=== PATIENT | male | born 1945 | race Asian ===

== ENCOUNTER 2022-01-03 19:15 | Emergency (ER) | payer MEDICARE, MEDICAID ==
[~2022-01-03] VITALS: Ht 165.1 cm; Wt 56.0 kg
[2022-01-03] MEDS ORDERED: TRANEXAMIC ACID 1,000 MG/10 ML TP ONE (19:30)
[2022-01-03] MEDS ORDERED: AMOX-494 MT (21:58)
[2022-01-03 23:00] VITALS: BP 158/82
== END 2022-01-03 23:02 | disposition home or self-care (01) ==
LOC: ER 19:15
DX: K91.840 Postprocedural hemorrhage of a digestive system organ or structure following a digestive system procedure (principal); E11.9 Type 2 diabetes mellitus without complications; E78.00 Pure hypercholesterolemia, unspecified; I10 Essential (primary) hypertension
CPT/HCPCS: 99283